=== PATIENT | female | born 1955 | race African-American/Black ===

== ENCOUNTER → 2020-08-13 | Day surgery (SDC) | payer OTHER ==
[~2020-08-13] MED LIST: AMLODIPINE BESY10 MG PO; FLONASE ALLERG9.9 ML INH; GABAPENTIN300 MG PO; LIDOCAINE HCL 2% LOCAL INJ 5 ML SDV VIAL INJ ONE; LORATADINE10 MG PO; POVIDONE IODINE 0.05% 0.05 % ML PO ONE; PREMARIN VG; PROPOFOL IV EMULSION 10 MG/ML 20 ML VIAL ONE
[2020-08-13 16:10] VITALS: BP 124/70
== END | disposition home or self-care (01) ==
LOC: OR 13:08
PROVIDERS: ATTEND Internal Medicine Gastroenterology
DX: Z12.11 Encounter for screening for malignant neoplasm of colon (principal); D12.2 Benign neoplasm of ascending colon; D12.4 Benign neoplasm of descending colon; K57.30 Diverticulosis of large intestine without perforation or abscess without bleeding; K64.8 Other hemorrhoids; K59.00 Constipation, unspecified; K21.9 Gastro-esophageal reflux disease without esophagitis; I10 Essential (primary) hypertension; F41.9 Anxiety disorder, unspecified; Z01.810 Encounter for preprocedural cardiovascular examination; Z95.0 Presence of cardiac pacemaker
CPT/HCPCS: 45380; 45385; 93005; J2001; J2704; 45378